=== PATIENT | female | born 1945 | race Caucasian/White ===

== ENCOUNTER 2020-12-15 16:53 | Inpatient (IN) ==
[2020-12-15] MEDS ORDERED: SODIUM CHLORIDE 0.9% 1,000 ML IV STA (17:24)
[2020-12-15] MEDS ORDERED: ACETAMINOPHEN 500 MG TABLET PO STA (17:24)
[2020-12-15] MEDS ORDERED: cefTRIAXone 1,000 MG in SODIUM CHLORIDE 0.9% 100 ML IV STA (17:24)
[2020-12-15 18:05] LABS: Basophils % 0.2 % (0.0-0.8); Eosinophils % 0.2 % (0.00-10.9); Hematocrit 34.8 VOL% (35.7-47.0); Hemoglobin 11.9 GM/DL (12.0-16.0); Immature Granulocytes % 0.5 %; Immature Granulocytes Absolute 0.06 #; Lymphocytes # 0.6 10*3/uL (1.4-4.0); Lymphocytes % 4.7 % (21.3-54.2); Mean Corpuscular HGB Conc 34.2 GM/DL (32-36); Mean Corpuscular Volume 86.1 FL (87-102); Mean Platelet Volume 9.6 FL (9.6-12.0); Monocytes % 8.7 % (1.7-12.7); Neutrophils % 85.7 % (38.7-73.9); Platelet Count 346 T/CUMM (130-400); Red Blood Count 4.04 MC/CUMM (3.8-5.5); Red Cell Distribution Width 14.6 % (9.3-17.3); White Blood Count 13.2 T/CUMM (4-12)
[2020-12-15 18:25] LABS: Albumin 2.9 G/DL (3.4-5.0); Band Neutrophils 5 % (0-10); Bilirubin,Total 0.8 MG/DL (0.2-1.0); Calcium 8.5 MG/DL (8.5-10.1); Eosinophils 1 % (0-10); Lymphocytes 6 % (20-55); Osmolality,Calculated 250.8 MOS/KG (273-304); Platelet Estimate Normal; Potassium 4.9 MMOL/L (3.5-5.1); Segmented Neutrophils 82 % (50-85); Total Cells Counted 100; Total Protein 6.6 G/DL (6.4-8.2)
[2020-12-15 18:58] LABS: Bilirubin,Urine Negative (Negative); Blood, Urine Small mg/dL (Negative); Glucose,Urine (UA) 50 mg/dL (Negative); Ketones,Urine Negative (Negative); Nitrite,Urine Positive (Negative); Protein,Urine 30 MG/DL; Squamous Epithelial Cell,Urine Occasional /HPF (0-10); Urine Appearance CLOUDY (Clear); Urine Color Yellow (Yellow); Urine Specific Gravity 1.004 (1.001-1.035); Urine Urobilinogen < 2.0 EU/DL (0.2-1.0)
[2020-12-15] MEDS ORDERED: ACETAMINOPHEN 325 MG TABLET PO PRN (20:19)
[2020-12-15] MEDS ORDERED: DEXTROSE 50% 25 GM/50 ML VIAL IV PRN (20:19)
[2020-12-15] MEDS ORDERED: GLUCAGON 1 MG VIAL IM PRN (20:19)
[2020-12-15] MEDS ORDERED: BISACODYL 5 MG TABLET PO PRN (20:19)
[2020-12-15] MEDS ORDERED: ONDANSETRON 4 MG/2 ML VIAL IV PRN (20:19)
[2020-12-15] MEDS ORDERED: NICOTINE 21 MG/24 HR PATCH TRANSDERM PRN (20:23)
[2020-12-15] MEDS ORDERED: SODIUM CHLORIDE 0.9% 1,000 ML IV SCH (20:30)
[2020-12-16] MEDS: INSULIN LISPRO 100 UNIT/ML SUBCUT SCH ×2 (02:52→08:52)
[2020-12-16 06:40] LABS: Basophils % 0.2 % (0.0-0.8); Eosinophils % 0.2 % (0.00-10.9); Hematocrit 34.9 VOL% (35.7-47.0); Hemoglobin 11.3 GM/DL (12.0-16.0); Immature Granulocytes % 0.4 %; Immature Granulocytes Absolute 0.04 #; Lymphocytes # 0.8 10*3/uL (1.4-4.0); Lymphocytes % 8.7 % (21.3-54.2); Mean Corpuscular HGB Conc 32.4 GM/DL (32-36); Mean Corpuscular Volume 87.5 FL (87-102); Mean Platelet Volume 9.4 FL (9.6-12.0); Monocytes % 10.4 % (1.7-12.7); Neutrophils % 80.1 % (38.7-73.9); Platelet Count 293 T/CUMM (130-400); Red Blood Count 3.99 MC/CUMM (3.8-5.5); Red Cell Distribution Width 14.6 % (9.3-17.3); White Blood Count 8.9 T/CUMM (4-12)
[2020-12-16 06:41] LABS: Basophils % 0.2 % (0.0-0.8); Eosinophils % 0.1 % (0.00-10.9); Hematocrit 34.7 VOL% (35.7-47.0); Hemoglobin 11.6 GM/DL (12.0-16.0); Immature Granulocytes % 0.4 %; Immature Granulocytes Absolute 0.04 #; Lymphocytes # 0.8 10*3/uL (1.4-4.0); Lymphocytes % 8.1 % (21.3-54.2); Mean Corpuscular HGB Conc 33.4 GM/DL (32-36); Mean Corpuscular Volume 86.3 FL (87-102); Mean Platelet Volume 9.2 FL (9.6-12.0); Monocytes % 11.1 % (1.7-12.7); Neutrophils % 80.1 % (38.7-73.9); Platelet Count 287 T/CUMM (130-400); Red Blood Count 4.02 MC/CUMM (3.8-5.5); Red Cell Distribution Width 14.6 % (9.3-17.3); White Blood Count 9.4 T/CUMM (4-12)
[2020-12-16 07:02] LABS: Folate 20.97 NG/ML (5.38-24.0); Vitamin B12 1098 PG/ML (211-911)
[2020-12-16 07:05] LABS: % Iron Saturation 4.7 % (18-50); Calcium 8.3 MG/DL (8.5-10.1); Osmolality,Calculated 259.1 MOS/KG (273-304); Potassium 3.8 MMOL/L (3.5-5.1)
[2020-12-16 07:49] LABS: Sedimentation Rate-Westergren 37 MM/HR (0-30)
[2020-12-16] MEDS: lisinopriL 20 MG TABLET PO SCH (08:52)
[2020-12-16] MEDS: FOLIC ACID 1 MG TABLET PO SCH (08:52)
[2020-12-16] MEDS: amLODIPine 10 MG TABLET PO SCH (08:53)
[2020-12-16] MEDS: SERTRALINE 50 MG TABLET PO SCH (08:53)
[2020-12-16] MEDS: ASPIRIN EC 81 MG TABLET PO SCH (08:53)
[2020-12-16] MEDS: cefTRIAXone 1,000 MG in SODIUM CHLORIDE 0.9% 100 ML IV SCH (08:53)
[2020-12-16] MEDS: FLUTICASONE 50 MCG NASAL SPRAY 16 GM BOTTLE BOTH NARES SCH (08:54)
[2020-12-16] MEDS: ALBUTEROL/IPRATROPIUM 3 ML NEB RESP TX SCH ×3 (10:04→19:10)
[2020-12-16] MEDS: SODIUM CHLORIDE 0.9% 1,000 ML IV SCH (10:38)
[2020-12-16] MEDS: FERROUS SULFATE 325 MG TABLET PO SCH (16:11)
[2020-12-16] MEDS: metFORMIN 500 MG TABLET PO SCH (16:11)
[2020-12-16] MEDS ORDERED: ATORVASTATIN 20 MG TABLET PO SCH (21:00)
[2020-12-17] MEDS: ALBUTEROL/IPRATROPIUM 3 ML NEB RESP TX SCH ×2 (00:03→07:30)
[2020-12-17] MEDS: SODIUM CHLORIDE 0.9% 1,000 ML IV SCH (02:42)
[2020-12-17 05:20] LABS: Basophils % 0.4 % (0.0-0.8); Eosinophils # 0.1 10*3/uL (0.0-0.87); Eosinophils % 0.7 % (0.00-10.9); Hematocrit 31.3 VOL% (35.7-47.0); Hemoglobin 10.2 GM/DL (12.0-16.0); Immature Granulocytes % 0.3 %; Immature Granulocytes Absolute 0.02 #; Lymphocytes # 1.8 10*3/uL (1.4-4.0); Lymphocytes % 26.2 % (21.3-54.2); Mean Corpuscular HGB Conc 32.6 GM/DL (32-36); Mean Corpuscular Volume 87.9 FL (87-102); Mean Platelet Volume 9.1 FL (9.6-12.0); Monocytes % 18.2 % (1.7-12.7); Neutrophils % 54.2 % (38.7-73.9); Platelet Count 275 T/CUMM (130-400); Red Blood Count 3.56 MC/CUMM (3.8-5.5); Red Cell Distribution Width 14.6 % (9.3-17.3); White Blood Count 6.9 T/CUMM (4-12)
[2020-12-17 05:32] LABS: Calcium 7.9 MG/DL (8.5-10.1); Osmolality,Calculated 265.5 MOS/KG (273-304); Potassium 3.6 MMOL/L (3.5-5.1)
[2020-12-17 05:43] LABS: Lymphocytes 33 % (20-55); Segmented Neutrophils 51 % (50-85); Total Cells Counted 100
[2020-12-17 05:44] LABS: Hypochromasia 1+; Microcytosis 1+; Platelet Estimate Adequate
[2020-12-17] MEDS: metFORMIN 500 MG TABLET PO SCH (07:54)
[2020-12-17] MEDS: FERROUS SULFATE 325 MG TABLET PO SCH (07:54)
[2020-12-17] MEDS: ASPIRIN EC 81 MG TABLET PO SCH (08:00)
[2020-12-17] MEDS: lisinopriL 20 MG TABLET PO SCH (08:00)
[2020-12-17] MEDS: amLODIPine 10 MG TABLET PO SCH (08:00)
[2020-12-17] MEDS: SERTRALINE 50 MG TABLET PO SCH (08:01)
[2020-12-17] MEDS: cefTRIAXone 1,000 MG in SODIUM CHLORIDE 0.9% 100 ML IV SCH (08:01)
[2020-12-17] MEDS: FLUTICASONE 50 MCG NASAL SPRAY 16 GM BOTTLE BOTH NARES SCH (08:01)
[2020-12-17] MEDS: FOLIC ACID 1 MG TABLET PO SCH (08:01)
[2020-12-17 10:47] LABS: Hemoglobin A1 (Alkaline) 97.6 % (96.5-98.5); Hemoglobin A2 (Alkaline) 2.4 % (1.5-3.5)
[2020-12-17] MEDS ORDERED: cefTRIAXone 1,000 MG in SODIUM CHLORIDE 0.9% 100 ML IV ONE (11:38)
[2020-12-17] MEDS ORDERED: cefTRIAXone 1,000 MG VIAL IM ONE (11:40)
[2020-12-17 11:57] VITALS: BP 131/58
[2020-12-19] MEDS ORDERED: METHOTREXATE 2.5 MG TABLET PO SCH (09:00)
== END 2020-12-17 13:55 | disposition home or self-care (01) | DRG 690 ==
LOC: N.ED 16:53 → SUATTDRO 19:17 → N.EDINP 19:17 → N.5E 20:37
PROVIDERS: ADMIT Internal Medicine; ATTEND Family Medicine

== ENCOUNTER 2021-12-18 19:08 | Inpatient (IN) ==
[2021-12-18] MEDS ORDERED: GLUCAGON 1 MG VIAL IM PRN (21:05)
[2021-12-18] MEDS ORDERED: DEXTROSE 50% 25 GM/50 ML VIAL IV PRN ×2 (21:05→21:08)
[2021-12-18] MEDS ORDERED: ALUMINUM/MAGNES/SIMETH MAX STR 30 ML UDCUP PO PRN (21:08)
[2021-12-18] MEDS ORDERED: ACETAMINOPHEN 325 MG TABLET PO PRN (21:08)
[2021-12-18] MEDS ORDERED: METHOTREXATE 2.5 MG TABLET PO SCH (21:30)
[2021-12-18] MEDS ORDERED: PHENOL 1.4% THROAT SPRAY 177 ML BOTTLE PO PRN (21:31)
[2021-12-18 22:08] LABS: Basophils % 0.1 % (0.0-0.8); Eosinophils % 0.1 % (0.00-10.9); Hemoglobin 11.3 GM/DL (12.0-16.0); Immature Granulocytes % 0.5 %; Immature Granulocytes Absolute 0.09 #; Lymphocytes # 1.3 10*3/uL (1.4-4.0); Lymphocytes % 7.5 % (21.3-54.2); Mean Corpuscular HGB Conc 34.2 GM/DL (32-36); Mean Corpuscular Volume 93.2 FL (87-102); Mean Platelet Volume 8.3 FL (9.6-12.0); Monocytes # 1.1 10*3/uL (0.11-0.8); Monocytes % 6.1 % (1.7-12.7); Neutrophils % 85.7 % (38.7-73.9); Platelet Count 259 T/CUMM (130-400); Red Blood Count 3.54 MC/CUMM (3.8-5.5); Red Cell Distribution Width 13.2 % (9.3-17.3); White Blood Count 17.5 T/CUMM (4-12)
[2021-12-18] MEDS: ENOXAPARIN 40 MG/0.4 ML SYRINGE SUBCUT SCH (22:18)
[2021-12-18 22:31] LABS: Albumin 3.1 G/DL (3.4-5.0); Bilirubin,Total 0.5 MG/DL (0.20-1.00); Calcium 8.3 MG/DL (8.5-10.1); Osmolality,Calculated 255.1 MOS/KG (273-304); Potassium 3.7 MMOL/L (3.5-5.1); Total Protein 5.7 G/DL (6.4-8.2)
[2021-12-18] MEDS: SODIUM CHLORIDE 0.9% 1,000 ML IV SCH (23:07)
[2021-12-18] MEDS: HYDROmorphone 1 MG/1 ML SYRINGE IV PRN (23:28)
[2021-12-18] MEDS: ONDANSETRON 4 MG/2 ML VIAL IV PRN (23:33)
[2021-12-19 01:42] LABS: RBC,Urine 1 /HPF (0-4); Squamous Epithelial Cell,Urine Occasional /HPF (0-10)
[2021-12-19 01:46] LABS: Bilirubin,Urine Negative (Negative); Blood, Urine Negative (Negative); Glucose,Urine (UA) Negative (Negative); Ketones,Urine 15 mg/dL (Negative); Nitrite,Urine Negative (Negative); Protein,Urine Negative (Negative); Urine Appearance Clear (Clear); Urine Color Yellow (Yellow); Urine Specific Gravity 1.015 (1.001-1.035); Urine Urobilinogen 0.2 eU/dL (<2.0); Urine pH 5.5 (4.5-8.0)
[2021-12-19] MEDS ORDERED: POTASSIUM CHLORIDE 20 MEQ TABLET PO PRN (03:08)
[2021-12-19] MEDS ORDERED: MAGNESIUM SULF RIDER 4 GM/100 ML PREMIX IV PRN (03:08)
[2021-12-19] MEDS ORDERED: MAGNESIUM SULF RIDER 2 GM/50 ML PREMIX IV PRN (03:08)
[2021-12-19] MEDS ORDERED: POTASSIUM CHLORIDE RIDER 10 MEQ/100 ML PREMIX IV PRN (03:08)
[2021-12-19 04:17] LABS: Basophils % 0.1 % (0.0-0.8); Eosinophils % 0.1 % (0.00-10.9); Hematocrit 29.5 VOL% (35.7-47.0); Hemoglobin 10.2 GM/DL (12.0-16.0); Immature Granulocytes % 0.5 %; Immature Granulocytes Absolute 0.05 #; Lymphocytes # 1.5 10*3/uL (1.4-4.0); Lymphocytes % 13.7 % (21.3-54.2); Mean Corpuscular HGB Conc 34.6 GM/DL (32-36); Mean Corpuscular Volume 93.4 FL (87-102); Mean Platelet Volume 8.8 FL (9.6-12.0); Monocytes # 0.7 10*3/uL (0.11-0.8); Monocytes % 6.7 % (1.7-12.7); Neutrophils % 78.9 % (38.7-73.9); Platelet Count 232 T/CUMM (130-400); Red Blood Count 3.16 MC/CUMM (3.8-5.5); Red Cell Distribution Width 13.2 % (9.3-17.3); White Blood Count 10.6 T/CUMM (4-12)
[2021-12-19 04:35] LABS: Calcium 8.3 MG/DL (8.5-10.1); Osmolality,Calculated 258.4 MOS/KG (273-304); Potassium 4.4 MMOL/L (3.5-5.1)
[2021-12-19] MEDS: ATORVASTATIN 20 MG TABLET PO SCH (08:53)
[2021-12-19] MEDS: INSULIN REGULAR 100 UNIT/ML SUBCUT SCH ×4 (08:53→22:07)
[2021-12-19] MEDS: amLODIPine 10 MG TABLET PO SCH (08:53)
[2021-12-19] MEDS: FOLIC ACID 1 MG TABLET PO SCH (08:54)
[2021-12-19] MEDS: FERROUS SULFATE 325 MG TABLET PO SCH ×2 (08:54→16:52)
[2021-12-19] MEDS: PANTOPRAZOLE 40 MG TABLET PO SCH (08:54)
[2021-12-19] MEDS: INSULIN NPH 100 UNIT/ML SUBCUT SCH (08:55)
[2021-12-19] MEDS ORDERED: SERTRALINE 25 MG TABLET PO SCH (09:00)
[2021-12-19] MEDS: lisinopriL 20 MG TABLET PO SCH (09:01)
[2021-12-19] MEDS: SODIUM CHLORIDE 0.9% 1,000 ML IV SCH ×2 (09:07→19:34)
[2021-12-19] MEDS: DOCUSATE SODIUM 100 MG CAPSULE PO SCH ×2 (09:13→20:48)
[2021-12-19] MEDS: CHOLECALCIFEROL 1,000 UNIT TABLET PO SCH (12:44)
[2021-12-19] MEDS: ALBUTEROL/IPRATROPIUM 3 ML NEB RESP TX SCH ×2 (14:35→19:46)
[2021-12-19] MEDS: HYDROmorphone 1 MG/1 ML SYRINGE IV PRN (19:35)
[2021-12-19] MEDS: ONDANSETRON 4 MG/2 ML VIAL IV PRN (19:36)
[2021-12-19] MEDS: ENOXAPARIN 40 MG/0.4 ML SYRINGE SUBCUT SCH (20:48)
[2021-12-20] MEDS: SODIUM CHLORIDE 0.9% 1,000 ML IV SCH (03:52)
[2021-12-20 05:16] LABS: Basophils % 0.1 % (0.0-0.8); Eosinophils # 0.1 10*3/uL (0.0-0.87); Eosinophils % 1.1 % (0.00-10.9); Hematocrit 25.7 VOL% (35.7-47.0); Hemoglobin 8.6 GM/DL (12.0-16.0); Immature Granulocytes % 0.6 %; Immature Granulocytes Absolute 0.04 #; Lymphocytes # 1.9 10*3/uL (1.4-4.0); Lymphocytes % 25.7 % (21.3-54.2); Mean Corpuscular HGB Conc 33.5 GM/DL (32-36); Mean Corpuscular Volume 95.9 FL (87-102); Mean Platelet Volume 9.2 FL (9.6-12.0); Monocytes # 0.4 10*3/uL (0.11-0.8); Monocytes % 5.4 % (1.7-12.7); Neutrophils % 67.1 % (38.7-73.9); Platelet Count 224 T/CUMM (130-400); Red Blood Count 2.68 MC/CUMM (3.8-5.5); Red Cell Distribution Width 13.4 % (9.3-17.3); White Blood Count 7.2 T/CUMM (4-12)
[2021-12-20 05:33] LABS: Calcium 7.8 MG/DL (8.5-10.1); Osmolality,Calculated 266.2 MOS/KG (273-304); Potassium 3.8 MMOL/L (3.5-5.1)
[2021-12-20] MEDS: ALBUTEROL/IPRATROPIUM 3 ML NEB RESP TX SCH ×3 (07:05→19:58)
[2021-12-20] MEDS: FERROUS SULFATE 325 MG TABLET PO SCH ×2 (08:08→17:13)
[2021-12-20] MEDS: FOLIC ACID 1 MG TABLET PO SCH (08:09)
[2021-12-20] MEDS: CHOLECALCIFEROL 1,000 UNIT TABLET PO SCH (08:09)
[2021-12-20] MEDS: amLODIPine 10 MG TABLET PO SCH (08:09)
[2021-12-20] MEDS: PANTOPRAZOLE 40 MG TABLET PO SCH (08:09)
[2021-12-20] MEDS: DOCUSATE SODIUM 100 MG CAPSULE PO SCH ×2 (08:09→20:27)
[2021-12-20] MEDS: lisinopriL 20 MG TABLET PO SCH (08:10)
[2021-12-20] MEDS: ATORVASTATIN 20 MG TABLET PO SCH (08:10)
[2021-12-20] MEDS: INSULIN NPH 100 UNIT/ML SUBCUT SCH (08:13)
[2021-12-20] MEDS: INSULIN REGULAR 100 UNIT/ML SUBCUT SCH ×4 (10:22→20:41)
[2021-12-20] MEDS ORDERED: NON-FORMULARY MEDICATION (Insulin Nph Isoph U-100 Human [Novolin N Flexpen] 100 unit/mL (3 SUBCUT SCH (10:45)
[2021-12-20] MEDS: metFORMIN 500 MG TABLET PO SCH (17:11)
[2021-12-20] MEDS: FLUTICASONE 50 MCG NASAL SPRAY 16 GM BOTTLE BOTH NARES SCH (20:27)
[2021-12-20] MEDS: ENOXAPARIN 40 MG/0.4 ML SYRINGE SUBCUT SCH (20:31)
[2021-12-21] MEDS: HYDROmorphone 1 MG/1 ML SYRINGE IV PRN (05:17)
[2021-12-21 05:47] LABS: Basophils % 0.2 % (0.0-0.8); Eosinophils # 0.1 10*3/uL (0.0-0.87); Eosinophils % 1.9 % (0.00-10.9); Hematocrit 25.3 VOL% (35.7-47.0); Hemoglobin 8.5 GM/DL (12.0-16.0); Immature Granulocytes % 0.3 %; Immature Granulocytes Absolute 0.02 #; Lymphocytes # 1.4 10*3/uL (1.4-4.0); Lymphocytes % 24.2 % (21.3-54.2); Mean Corpuscular HGB Conc 33.6 GM/DL (32-36); Mean Corpuscular Volume 95.5 FL (87-102); Mean Platelet Volume 9.2 FL (9.6-12.0); Monocytes # 0.5 10*3/uL (0.11-0.8); Neutrophils % 65.4 % (38.7-73.9); Platelet Count 220 T/CUMM (130-400); Red Blood Count 2.65 MC/CUMM (3.8-5.5); Red Cell Distribution Width 13.3 % (9.3-17.3); White Blood Count 5.9 T/CUMM (4-12)
[2021-12-21 06:00] LABS: Osmolality,Calculated 264.4 MOS/KG (273-304); Potassium 3.7 MMOL/L (3.5-5.1)
[2021-12-21 06:30] LABS: Platelet Estimate Adequate
[2021-12-21] MEDS: ALBUTEROL/IPRATROPIUM 3 ML NEB RESP TX SCH ×3 (07:10→19:35)
[2021-12-21] MEDS: FLUTICASONE 50 MCG NASAL SPRAY 16 GM BOTTLE BOTH NARES SCH ×2 (08:43→21:52)
[2021-12-21] MEDS: metFORMIN 500 MG TABLET PO SCH ×2 (08:44→17:25)
[2021-12-21] MEDS: ATORVASTATIN 20 MG TABLET PO SCH (08:44)
[2021-12-21] MEDS: amLODIPine 10 MG TABLET PO SCH (08:45)
[2021-12-21] MEDS: DOCUSATE SODIUM 100 MG CAPSULE PO SCH ×2 (08:45→21:52)
[2021-12-21] MEDS: PANTOPRAZOLE 40 MG TABLET PO SCH (08:45)
[2021-12-21] MEDS: FOLIC ACID 1 MG TABLET PO SCH (08:45)
[2021-12-21] MEDS: FERROUS SULFATE 325 MG TABLET PO SCH ×2 (08:45→17:25)
[2021-12-21] MEDS: lisinopriL 20 MG TABLET PO SCH (08:46)
[2021-12-21] MEDS: CHOLECALCIFEROL 1,000 UNIT TABLET PO SCH (08:55)
[2021-12-21] MEDS: INSULIN NPH 100 UNIT/ML SUBCUT SCH (08:57)
[2021-12-21] MEDS ORDERED: DEXTROSE 10% 250 ML BAG IV PRN (09:30)
[2021-12-21] MEDS ORDERED: TUBERCULIN SKIN TEST 0.1 ML SYRINGE INTRADERM ONE (11:00)
[2021-12-21] MEDS: INSULIN REGULAR 100 UNIT/ML SUBCUT SCH ×4 (19:03→21:53)
[2021-12-21] MEDS: ENOXAPARIN 40 MG/0.4 ML SYRINGE SUBCUT SCH (21:53)
[2021-12-22] MEDS: ONDANSETRON 4 MG/2 ML VIAL IV PRN (02:14)
[2021-12-22] MEDS: ALBUTEROL/IPRATROPIUM 3 ML NEB RESP TX SCH (07:13)
[2021-12-22] MEDS: INSULIN REGULAR 100 UNIT/ML SUBCUT SCH ×2 (07:46→12:19)
[2021-12-22] MEDS: INSULIN NPH 100 UNIT/ML SUBCUT SCH (07:58)
[2021-12-22] MEDS: FERROUS SULFATE 325 MG TABLET PO SCH (08:00)
[2021-12-22] MEDS: amLODIPine 10 MG TABLET PO SCH (08:00)
[2021-12-22] MEDS: ATORVASTATIN 20 MG TABLET PO SCH (08:01)
[2021-12-22] MEDS: FOLIC ACID 1 MG TABLET PO SCH (08:01)
[2021-12-22] MEDS: lisinopriL 20 MG TABLET PO SCH (08:01)
[2021-12-22] MEDS: PANTOPRAZOLE 40 MG TABLET PO SCH (08:01)
[2021-12-22] MEDS: CHOLECALCIFEROL 1,000 UNIT TABLET PO SCH (08:01)
[2021-12-22] MEDS: metFORMIN 500 MG TABLET PO SCH (08:02)
[2021-12-22] MEDS: FLUTICASONE 50 MCG NASAL SPRAY 16 GM BOTTLE BOTH NARES SCH (08:05)
[2021-12-22] MEDS: DOCUSATE SODIUM 100 MG CAPSULE PO SCH (08:27)
[2021-12-22] MEDS ORDERED: SERTRALINE 50 MG TABLET PO SCH (09:00)
[2021-12-22 12:13] VITALS: BP 100/50
== END 2021-12-22 13:01 | DRG 552 ==
LOC: EDBD → EDUNIT# → N.ED 19:08 → N.EDINP 21:29 → SUATTDRO 21:29 → N.3E 22:11
PROVIDERS: ADMIT Internal Medicine; ATTEND Family Medicine